=== PATIENT | male | born 2000 | race Caucasian/White ===

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

== ENCOUNTER 2024-08-22 06:20 | Emergency (ER) | payer OTHER ==
[~2024-08-22] VITALS: Ht 165.1 cm; Wt 80.0 kg
[~2024-08-22 06:20] MED LIST: CLEOCIN300 MG PO; IBUPROFEN PO
[2024-08-22] MEDS ORDERED: LIDOCAINE W/ EPINEPHRINE 10 MG/ML INJ STI STA (06:26)
[2024-08-22] MEDS ORDERED: POVIDONE IODINE 0.5 OZ/BTL TOP STA (06:26)
[2024-08-22] MEDS ORDERED: SULFAMETHOXAZOLE W/TRIMETHOPRI 1 COMBO TAB PO STA (06:26)
[2024-08-22] MEDS ORDERED: BACTRIM DS1 TAB PO (06:51)
[2024-08-22 06:57] VITALS: BP 142/88
== END 2024-08-22 07:08 | disposition home or self-care (01) | DRG 603 ==
LOC: ED 06:20
PROC: 0H98XZZ Drainage of Buttock Skin, External Approach (ICD-10-PCS; principal; 2024-08-22)
DX: L05.01 Pilonidal cyst with abscess (principal)